=== PATIENT | female | born 1990 | race Caucasian/White ===

== ENCOUNTER 2020-10-13 18:02 | Emergency (ER) | payer OTHER ==
[~2020-10-13] VITALS: Ht 165.1 cm; Wt 79.5 kg
[2020-10-13] MEDS ORDERED: DOXY-336 PO (18:24)
[2020-10-13] MEDS ORDERED: BUPR1FIL3 SL (18:24)
[2020-10-13] MEDS ORDERED: BUPR-121 PO (18:24)
[2020-10-13 19:18] VITALS: BP 129/80
== END 2020-10-13 19:49 | disposition home or self-care (01) ==
LOC: EMS 18:05
DX: L03.213 Periorbital cellulitis (principal); F32.9 Major depressive disorder, single episode, unspecified; I10 Essential (primary) hypertension; Z79.899 Other long term (current) drug therapy
CPT/HCPCS: 99283

== ENCOUNTER 2023-03-04 22:31 | Emergency (ER) | payer OTHER ==
[~2023-03-04] VITALS: Ht 165.1 cm; Wt 72.7 kg
[~2023-03-04 22:31] MED LIST: BUPR-345 PO; BUPR1FIL3 SL; DOXY-469 PO
[2023-03-04] MEDS ORDERED: FLUO20CA36 PO (22:36)
[2023-03-04] MEDS ORDERED: BUPR100S SQ (22:36)
[2023-03-04] MEDS ORDERED: GABA-1181 PO (22:36)
[2023-03-04 22:37] VITALS: TEMP 98.4
[2023-03-04 23:00] VITALS: BP 143/91; PULSE 103; RESP 19
[2023-03-05 00:10] LABS: BASOPHILS % (AUTO) 0.6 % (0.0-2.0); HEMATOCRIT 35.7 % (36-46); HEMOGLOBIN 11.9 g/dL (12.0-16.0); LYMPHOCYTES # (AUTO) 1.9 K/uL (1.0-4.8); LYMPHOCYTES % (AUTO) 20.7 % (22.0-44.0); MEAN CORPUSCULAR HEMOGLOBIN 29.2 pg (26.0-34.0); MEAN CORPUSCULAR HGB CONC 33.3 G/dL (31.0-37.0); MEAN CORPUSCULAR VOLUME 88 fL (80-100); MONOCYTES # (AUTO) 1.1 K/uL (0.1-1.0); NEUTROPHILS # (AUTO) 5.9 K/uL (1.8-7.7); NEUTROPHILS % (AUTO) 64.7 % (40.0-70.0); PLATELET COUNT (AUTO) 266 K/uL (150-450); RED BLOOD CELL COUNT(AUTO) 4.07 MIL/uL (4.00-5.20); RED CELL DISTRIBUTION WIDTH 12.2 % (11.5-14.5); WHITE BLOOD COUNT (AUTO) 9.1 K/uL (4.5-11.0)
[2023-03-05 00:14] LABS: APPEARANCE,URINE CLEAR (CLEAR); BILIRUBIN,URINE NEGATIVE (NEGATIVE); COLOR,URINE DARK YELLOW (YELLOW); GLUCOSE, URINE (UA) NEGATIVE (NEGATIVE); KETONES,URINE NEGATIVE (NEGATIVE); LEUKOCYTE ESTERASE ,URINE SMALL (NEGATIVE); NITRATE,URINE NEGATIVE (NEGATIVE); OCCULT BLOOD,URINE NEGATIVE (NEGATIVE); PROTEIN,URINE NEGATIVE (NEGATIVE); SPECIFIC GRAVITIY, URINE 1.002 (1.003-1.030); UROBILINOGEN,URINE <=1.0 mg/dL (<=1.0)
[2023-03-05 00:18] LABS: ANION GAP 4 mmol/L (8-16); CARBON DIOXIDE 32 mmol/L (22-29); CHLORIDE 100 mmol/L (98-107); CREATININE 1.96 mg/dL (0.60-1.30); GLOMERULAR FILTR. RATE CALC 29 mL/min (>60); GLUCOSE,RANDOM 92 mg/dL (70-110); POTASSIUM 3.6 mmol/L (3.5-5.1); SODIUM SERUM 136 mmol/L (136-145); UREA NITROGEN, BLOOD 16 mg/dL (7-18)
[2023-03-05 00:21] LABS: RBC,URINE None Seen /HPF (0-2)
[2023-03-05 00:22] LABS: BACTERIA,URINE None Seen /HPF (None Seen); SQUAMOUS EPITHELIAL CELL,UR Rare /LPF (None Seen)
[2023-03-05 00:33] LABS: ALANINE AMINOTRANSFERASE 25 U/L (12-78); ALBUMIN 3.9 g/dL (3.4-5.0); ALKALINE PHOSPHATASE 86 U/L (46-116); ASPARTATE AMINOTRANSFERASE 23 U/L (15-37); BILIRUBIN,TOTAL 1.4 mg/dL (0.1-1.0); HCG,QUANTITATIVE < 1 mIU/mL (0-6); TOTAL PROTEIN, SERUM 7.2 g/dL (6.4-8.2)
[2023-03-05] MEDS ORDERED: CEPH-558 PO (01:24)
[2023-03-05] MEDS ORDERED: PHEN-674 PO (01:24)
== END 2023-03-05 01:50 | disposition home or self-care (01) ==
LOC: EMS 22:32
DX: N39.0 Urinary tract infection, site not specified (principal); F32.A Depression, unspecified; I10 Essential (primary) hypertension
CPT/HCPCS: 80053; 81001; 84702; 85025; 87086; 87186; 99283